=== PATIENT | female | born 1980 | race Caucasian/White ===

== ENCOUNTER 2016-07-07 01:41 | Emergency (ER) | payer OTHER ==
[~2016-07-07 01:41] MED LIST: AMOXIL875 MG PO; ATARAX PO; DIFLUCAN100 MG PO; DOXYCYCLINE150 MG PO; LEVAQUIN750 MG PO; MEDROL DOSEPAK4 MG DOB; PAXIL PO; PEN-VEE K; ROBITUSSIN A-C-S1 ML DOB; XANAX0.5 MG PO
== END 2016-07-07 01:45 | disposition home or self-care (01) ==
LOC: CED 01:41
DX: L50.9 Urticaria, unspecified (principal); Z90.49 Acquired absence of other specified parts of digestive tract; Z90.89 Acquired absence of other organs; Z88.1 Allergy status to other antibiotic agents; Z88.5 Allergy status to narcotic agent; Z88.8 Allergy status to other drugs, medicaments and biological substances
CPT/HCPCS: 99282